=== PATIENT | male | born 1995 | race African-American/Black ===

== ENCOUNTER 2017-03-21 06:15 | Emergency (ER) | payer BC, OTHER ==
--- NOTE | ~2017-03-21 | CR72 ---
[facility] A Service of [facility] RADIOLOGY TEXT RESULTS PATIENT: MARY ANNE IVERSON LOCATION: [facility] : [id number] UNIT #: [id number] AGE: [address]: Tino Jules MD SEX: M ORDER DR: [id number] [facility] [address] [place], [place] [address] [id number] E MR#: [id number] Acc #: [id number] NAME: MARY ANNE IVERSON : 1995 SEX: M STUDY DATE/TIME: 03/21/2017 6:42 UNIT: [facility] ROOM: STUDY DESCRIPTION: CR Chest Single View Portable Attending Physician: Tino Jules M.D. Ordering Physician: Tino Jules M.D. Primary Care Physician: Primary Care Physician No MEDICAL IMAGING REPORT This report is preliminary unless electronic signature is present EXAM Portable chest 03/21/2017 HISTORY 21-year-old male with shortness of air for 2 days. COMPARISON Chest 12/15/2016. FINDINGS Frontal chest demonstrates clear lungs. No pleural effusion or pneumothorax. Heart size and mediastinum normal. Pulmonary vasculature normal. IMPRESSION No acute cardiopulmonary findings. Dictated by... Tom Wynn M.D. THIS IS AN ELECTRONICALLY VERIFIED REPORT Tom Wynn M.D. at 03/22/2017 6:38 PM ANTOINE/miya TD: 03/21/2017 09:02 JOB #: [id number] MEDICAL IMAGING REPORT Page 1 of 1 COPY
== END 2017-03-21 08:40 | disposition home or self-care (01) ==
LOC: CED 06:15
DX: J45.901 Unspecified asthma with (acute) exacerbation (principal); Z91.018 Allergy to other foods
CPT/HCPCS: 71010; 94640; 99284